=== PATIENT | female | born 1990 | race African-American/Black ===

== ENCOUNTER 2024-03-11 11:54 | Emergency (ER) | payer OTHER, SELFPAY ==
--- NOTE | ~2024-03-11 | XR_ITS ---
EXAMINATION: XR CHEST CLINICAL INFORMATION: Cough COMPARISON: None available. TECHNIQUE: 2 views of the chest were obtained. FINDINGS: The lungs are adequately expanded. No focal consolidation. Mild central vascular congestion. No pleural effusions or pneumothorax. The cardiomediastinal silhouette is within normal limits. No acute osseous abnormality. XR/XR chest 2V IMPRESSION: Mild central vascular congestion. No focal consolidation. Electronically signed by: Tien Vera MD 03/11/2024 03:02 PM EDT
--- NOTE | 2024-03-11 11:58 | ECG_ITS ---
Test Reason : CHEST PAIN Blood Pressure : / mmHG Vent. Rate : 091 BPM Atrial Rate : 091 BPM P-R Int : 156 ms QRS Dur : 086 ms QT Int : 370 ms P-R-T Axes : 055 100 033 degrees QTc Int : 455 ms Normal sinus rhythm Rightward axis Borderline ECG No previous ECGs available Referred By: Liya Swift Electronically Signed By:JAMAL CHRISTIANSON
[2024-03-11 12:11] VITALS: BP 152/94; PULSE 96; RESP 18; TEMP 37; O2SAT 98; BMI 48.8
--- NOTE | 2024-03-11 12:12 | ED_ITS ---
HPI - SOB/Dyspnea General Chief Complaint: Upper Respiratory Symptoms Stated Complaint: sob-cp Time Seen by Provider: 03/11/24 12:17 Source: patient Mode of arrival: ambulatory Limitations: no limitations History of Present Illness HPI Narrative: This is an otherwise healthy 33-year-old woman presents for evaluation difficulty breathing. Patient states that she has been sick for the last approximate 1 week. She reports associated dry cough, congestion and runny nose. She states that she thought she had the ?flu?. She states no viral testing. She reports associated fevers, she reports that since resolved. She states that over the last 2-3 days she has had increasingly difficulty breathing. She reports no sputum production or hemoptysis. She states chest pain when she is coughing. She states no exertional chest pain. She states no syncope. She states no associated lightheadedness or palpitations. She states no back pain or abdominal pain. She states no nausea, vomiting, change in bowel habits or urinary symptoms. She states no associated leg pain or swelling. She has a previous history of DVT/PE or family history of venous thromboembolism. She states no history of malignancy. She states no recent surgery. She reports she has no cardiopulmonary history. She states no history of malignancy. She states her siblings and parents do not have any history of asthma. She states she is a nonsmoker. Related Data Previous Rx's ?Medication ?Instructions ?Recorded albuterol sulfate 90 mcg/actuation 4 puff inhalation Q4H PRN 03/11/24 aerosol inhaler shortness of breath or wheezing #8.5 grams prednisone 50 mg tablet 50 mg PO DAILY 5 days #5 tabs 03/11/24 Allergies Allergy/AdvReac Type Severity Reaction Status Date / Time No Known Allergies Allergy Verified 03/11/24 12:12 Review of Systems 2 Review of Systems: ROS as per HPI [facility] Social History Social History Advance Directives: No Advance Directives Information Provided: No Physical Exam 2 Vital Signs: Vital Signs: Last Vital Signs Temp 98.6 F 03/11/24 12:11 Pulse 98 03/11/24 14:36 Resp 15 03/11/24 14:36 BP 152/94 H 03/11/24 12:11 Pulse Ox 98 03/11/24 12:11 O2 Del Method Room Air 03/11/24 12:11 BMI result Body Mass Index 48.8 Gen: NAD, AOx3, speaking in full sentences HEENT: NCAT, EOMI, normal conjunctiva, uvula midline without edema CV: RRR, no murmurs appreciated Pulm: Diffuse expiratory wheezes, good aeration to the bases, no rhonchi, rales or stridor, no respiratory distress GI: Soft, NTND MSK: No asymmetrical calf edema/TTP/erythema Neuro: Grossly non focal Course Course Course Narrative: This is a Rapid Medical Exam performed in triage by Liya Swift PA-C. Full HPI, ROS and PE to be performed by primary ED provider. 33 yo F w/no sig PMHx presenting to the ED c/o SOB & CP when coughing x few days. Admits started getting sick last week. denies fever, travel, no sick, contacts PE: insp & exp wheezing throughout, talking in short sentences. HTNsive in triage 194/172 Plan: EKG, labs, CXR, vrial testing, bronch protocol Medications Administered Discontinued Medications Generic Name Dose Route Start Last Admin Trade Name Freq PRN Reason Stop Dose Admin Albuterol Sulfate 2.5 mg/ 5 mg 03/11/24 14:27 03/11/24 14:36 Albuterol Sulfate 2.5 mg INHALE 03/11/24 14:28 5 mg ONCE ONE Administration Albuterol Sulfate 5 mg/ 0 mg 03/11/24 12:25 03/11/24 12:29 Albuterol/Ipratropium 3 ml INHALE 03/11/24 12:26 1 each ONCE ONE Administration Sodium Chloride 1,000 mls @ 999 mls/hr 03/11/24 12:30 03/11/24 17:16 Ns IV 03/11/24 13:30 Infused .Q1H1M LUIS ALBERTO Infusion Methylprednisolone Sodium Succinate 125 mg 03/11/24 12:28 03/11/24 13:03 Methylprednisolone Sod Succ 125 Mg/2 Ml Vial IVPUSH 03/11/24 12:29 125 mg ONCE ONE Administration Medical Decision Making Medical Decision Making MDM Narrative: Differential diagnosis includes, but is not limited to bronchospasm, viral- induced bronchospasm, pneumonia, viral upper respiratory tract infection. Patient is afebrile and hemodynamically stable on room air. Exam is is notable for diffuse expiratory wheezes consistent with bronchospasm for which patient is provided nebulized bronchodilator therapy and methylprednisolone. I reviewed and interpreted labs, which are noncontributory. I reviewed and interpreted EKG, which is unremarkable for any acute findings. Diagnostic imaging studies are unremarkable for any acute findings. 1420 - On re-examination, patient is well-appearing and in no acute distress. ?She has no respiratory distress but continues to have wheezes with improved aeration. Will provide additional nebulized bronchodilator There is no indication for further emergent evaluation in this otherwise well- appearing patient as above. ?Patient is provided written and verbal instructions, educational materials, prescription for prednisone and albuterol MDI (I have called in the prescription to [facility] at [address] [place] [address] in [place], [place] and spoke with Mello), pulmonology referral recommendations for outpatient follow-up, strict return precautions and teach back is performed. ?Patient states understanding and agreement with plan of care. ?Patient is discharged home in stable and improved condition. Admission/Observation Consideration of admission/observation: Escalation of care including admission/observation considered Lab Data MDM Lab Attestation statement: I reviewed the patient's lab results. I independently reviewed and her patient's labs including CBC and BMP, which are unremarkable. Troponin is undetectable. 03/11/24 13:03 03/11/24 13:03 Labs: Lab Results 03/11/24 Range/Units 13:03 WBC 6.2 (4.8-10.8) X10*3/uL RBC 4.47 (4.20-5.50) X10*6/uL Hgb 13.6 (12.0-16.0) g/dl Hct 40.6 (37.0-47.0) % MCV 90.8 (80.0-98.0) fL MCH 30.4 (27.0-33.0) pg MCHC 33.5 (31.0-35.0) g/dl RDW 12.7 (11.0-16.0) % Plt Count 300 (160-400) X10*3/uL MPV 8.6 L (9.4-12.3) fL Immature Gran % (Auto) 0.5 H (0.0-0.4) % Neut % (Auto) 55.0 (45-73) % Lymph % (Auto) 30.9 (20-40) % [place] % (Auto) 8.5 (2-11) % Eos % (Auto) 4.8 H (0-4) % Baso % (Auto) 0.3 (0-2) % Lymph # (Auto) 1.9 (1.2-4.9) X10*3/uL [place] # (Auto) 0.5 (0.1-1.2) X10*3/uL Eos # (Auto) 0.3 (0.0-0.4) X10*3/uL Baso # (Auto) 0.0 (0.0-0.2) X10*3/uL Abs Immat Gran (auto) 0.03 (0.00-0.03) X10*3/uL Absolute Neuts (auto) 3.4 (2.0-8.3) x10*3/uL Absolute Nucleated RBC 0.000 (0.0-0.012) X10*3/uL Nucleated RBC % (auto) 0.0 (0.0-0.2) /100WBC Sodium 142 (135-145) mmol/L Potassium 4.6 (3.3-5.1) mmol/L Chloride 109 H (96-108) mmol/L Carbon Dioxide 23 (22-29) mmol/L Anion Gap 15 (12-20) BUN 7 L (9-16) mg/dL Creatinine 0.74 (0.5-1.4) mg/dL Estim Creat Clear Calc 126.3 Estimated GFR > 60 Random Glucose 115 (60-115) mg/dL Calcium 9.5 (8.4-10.2) mg/dL Troponin I High Sens < 2.7 (<3.5-17.0) ng/L Influenza Type A (PCR) NEGATIVE (Negative) Influenza Type B (PCR) NEGATIVE (Negative) RSV RNA Qual (PCR) NEGATIVE (Negative) SARS-CoV-2 RNA (RT-PCR) NEGATIVE (Negative) Independent Interpretation I performed an independent interpretation of an: EKG and Plain X-Ray Interpretation: I independently reviewed and interpreted the patient's EKG, which demonstrates sinus rhythm at 91 beats per minute, VA 156, QRS 86, QTC 455, no STEMI I independently reviewed and interpreted the patient's chest x-ray, which demonstrates no pneumothorax or focal consolidation Radiology Impression Discussion of test interpretation with radiology: I have reviewed the radiologist's reading. Radiologist Impression: XR/XR chest 2V IMPRESSION: Mild central vascular congestion. No focal consolidation. Electronically signed by: Tien Vera MD 03/11/2024 03:02 PM EDT Dictated By: Tien Vera Signed By: <Electronically signed by Tien Vera in [place]> 03/11/24 1502 Discharge Plan Discharge Clinical Impression: Acute bronchospasm Patient Disposition: Home, Self-Care Instructions: Bronchospasm (ED) Additional Instructions: You were seen and evaluated in the emergency room. Your vital signs were normal and he did not have fever. ? Your blood work was normal. Your chest x-ray was normal and did not show any evidence of pneumonia. You tested negative for COVID-19, influenza and RSV. You are found to have wheezing in her lungs and was treated with steroids and breathing treatments. You are given a prescription for prednisone please start taking your next dose tomorrow morning March 12, 2024. You are given a prescription for an albuterol inhaler. Please continue to use with the spacer provided to you. Please use 4 puffs every 4 hours as needed for wheezing, difficulty breathing, shortness of breath or chest tightness. I have called your prescriptions in to the [facility] on [address] [place] [address], [place] [address]. Please follow-up with your primary care doctor in the next 5-7 days. ? You are given a referral to follow up with a lung doctor (disability aide). Please call today to schedule a follow-up appointment in the next 1-2 weeks. Please return to the emergency room if you develop any worsening symptoms including, but not limited to fever, chest pain or difficulty breathing. ? Prescriptions: New prednisone 50 mg tablet 50 mg PO DAILY 5 Days Qty: 5 0RF albuterol sulfate 90 mcg/actuation HFA aerosol inhaler 4 puff inhalation Q4H PRN (Reason: shortness of breath or wheezing) Qty: 8.5 0RF Referrals: [facility] Pul[facility] [Provider Group] Print Language: Khmer
[2024-03-11 12:29] VITALS: PULSE 96; RESP 18; O2SAT 97
[2024-03-11] MEDS: Albuterol Sulfate 5 MG, Albuterol/Iprat 2.5/0.5MG 3 ML 3 ML INHALE (12:29)
[2024-03-11] MEDS: methylPREDNISolone Sod Succ 125 MG/2 ML VIAL IVPUSH (13:03)
[2024-03-11] MEDS: 0.9 % Sodium Chloride 1,000 ML 999 ML IV (13:03)
[2024-03-11 13:10] LABS: MANUAL DIFF FLAG NO
[2024-03-11 13:12] LABS: Basophils Percent Auto 0.3 % (0-2); Eosinophils Absolute Auto 0.3 X10*3/uL (0.0-0.4); Eosinophils Percent Auto 4.8 % (0-4); Hematocrit 40.6 % (37.0-47.0); Hemoglobin 13.6 g/dl (12.0-16.0); Imm Gran Abs Auto 0.03 X10*3/uL (0.00-0.03); Imm Gran Pct Auto 0.5 % (0.0-0.4); Lymphocytes Absolute Auto 1.9 X10*3/uL (1.2-4.9); Lymphocytes Percent Auto 30.9 % (20-40); Mean Corpuscular HGB Conc 33.5 g/dl (31.0-35.0); Mean Corpuscular Hemoglobin 30.4 pg (27.0-33.0); Mean Corpuscular Volume 90.8 fL (80.0-98.0); Mean Platelet Volume 8.6 fL (9.4-12.3); Monocytes Absolute Auto 0.5 X10*3/uL (0.1-1.2); Monocytes Percent Auto 8.5 % (2-11); Neutrophils Absolute Auto 3.4 x10*3/uL (2.0-8.3); Platelet Count 300 X10*3/uL (160-400); Red Blood Count 4.47 X10*6/uL (4.20-5.50); Red Cell Distribution Width 12.7 % (11.0-16.0); White Blood Count 6.2 X10*3/uL (4.8-10.8)
[2024-03-11 13:31] LABS: Anion Gap 15 (12-20); Blood Urea Nitrogen 7 mg/dL (9-16); Calcium 9.5 mg/dL (8.4-10.2); Carbon Dioxide 23 mmol/L (22-29); Chloride 109 mmol/L (96-108); Creatinine Clr Calc Pharmacy 126.3; Estimated Glomerular Filt Rate > 60; Glucose Random 115 mg/dL (60-115); Potassium 4.6 mmol/L (3.3-5.1); Sodium 142 mmol/L (135-145)
[2024-03-11 13:35] LABS: Troponin-I High Sensitivity < 2.7 ng/L (<3.5-17.0)
[2024-03-11 14:36] VITALS: PULSE 98; RESP 15; O2SAT 96
[2024-03-11] MEDS: Albuterol Sulfate 2.5 MG, Albuterol Sulfate (0.083%) 2.5 MG 5 MG INHALE (14:36)
[2024-03-11 14:58] LABS: Influenza A PCR NEGATIVE (Negative); Influenza B PCR NEGATIVE (Negative); Resp Syncy Virus RNA Qual PCR NEGATIVE (Negative); SARS COV2 PCR INHOUSE NEGATIVE (Negative)
[2024-03-11 17:51] VITALS: BP 174/98; PULSE 108; RESP 18; TEMP 36.6; O2SAT 96
[2024-03-11] MEDS: Albuterol Sulfate 90 MCG 8 GM INHALER 4 PUFF INHALE (17:51)
== END 2024-03-11 17:52 | disposition home or self-care (01) ==
PROVIDERS: Physician Assistant; Emergency Provider Emergency Medicine
DX: J98.01 Acute bronchospasm (principal); Z03.818 Encounter for observation for suspected exposure to other biological agents ruled out; R05.9 Cough, unspecified
CPT/HCPCS: 0241U; 36415; 71046; 80048; 84484; 85025; 93005; 94640; 96361; 96374; 99284; J2919